=== PATIENT | female | born 1965 | race Caucasian/White ===

== ENCOUNTER 2019-09-27 10:38 | Emergency (ER) | payer OTHER, SELFPAY ==
[2019-09-27 10:54] VITALS: BP 137/69; PULSE 88; RESP 16; TEMP 37.2; O2SAT 100; BMI 31.4
--- NOTE | 2019-09-27 11:35 | DI.RAD.S_ITS ---
PROCEDURE: XR CHEST 1V INDICATIONS: cough TECHNIQUE: One view of the chest was acquired. COMPARISON: None. FINDINGS: Surgical changes and devices: Upper abdominal postoperative changes are seen. Lungs and pleura: On this semiupright portable chest examination, no large pneumothorax or large pleural effusions are seen. No focal infiltrates are seen. Mediastinum: Mediastinal contours appear normal. Heart size is normal. Bones and chest wall: Age-appropriate bony degenerative changes are seen. No suspicious bony lesions. Overlying soft tissues appear unremarkable. IMPRESSION: Portable chest within normal limits. Dictated by: Ramírez Kim M.D. on 09/27/2019 at 11:34 Approved by: Ramírez Kim M.D. on 09/27/2019 at 11:34
--- NOTE | 2019-09-27 11:48 | ED_ITS ---
HPI - Ear Problem <Rama Simms, [employer] COUNSEL-BC - Last Filed: 09/27/19 19:55> General Chief complaint: Ear Stated complaint: LEFT EAR INFECTION Time Seen by Provider: 09/27/19 11:18 Source: patient Mode of arrival: Ambulatory Limitations: no limitations History of Present Illness HPI Narrative: The patient is a 54-year-old female nonsmoker with history of Ailyn-en-Y gastric bypass, Sjogren's, rheumatoid arthritis, anemia presenting to the emergency department for left infection. She started noting left ear pain several weeks ago, then this week she started having increased pain behind and in front of her ear. She complains of severe fatigue, significant chills, dry cough, and pain. She has been using Tylenol at home. She took her daughter's and said last night even though she knows that she was not supposed to because of her Ailyn-en-Y. She denies any fevers. She does take Humira and also receives Venofer infusions. She states that she did have a cut inside of her ear several weeks ago when she ?was picking at it.The patient does believe that her dry cough is due to being from out of town. 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 She denies any nausea or vomiting, but does complain of lack of appetite. Related Data Home Medications Medication Instructions Recorded Confirmed adalimumab 40 mg/0.8 mL 40 mg SUBCUT Q10D ml 09/27/19 09/27/19 subcutaneous syringe kit clonazepam 1 mg tablet 1 mg PO BEDTIME 09/27/19 09/27/19 cyclobenzaprine 10 mg tablet 10 mg PO BEDTIME 09/27/19 09/27/19 docusate sodium 100 mg capsule 100 mg PO BID 09/27/19 09/27/19 estradiol 2 mg tablet 2 mg PO DAILY 09/27/19 09/27/19 hydroxychloroquine 200 mg tablet 400 mg PO DAILY tab 09/27/19 09/27/19 iron sucrose 100 mg iron/5 mL 100 mg IV 2XW ml 09/27/19 09/27/19 intravenous solution levothyroxine 150 mcg capsule 150 mcg PO DAILY 09/27/19 09/27/19 liothyronine 25 mcg tablet 25 mcg PO DAILY 09/27/19 09/27/19 mecobalamin (vitamin B12) 10,000 mcg IM 09/27/19 09/27/19 mcg solution for injection pantoprazole PO 09/27/19 09/27/19 phentermine 37.5 mg tablet 37.5 mg PO DAILY 09/27/19 09/27/19 rosuvastatin 5 mg tablet 5 mg PO DAILY 09/27/19 09/27/19 simethicone 125 mg capsule 125 mg PO QD-BID PRN 09/27/19 09/27/19 Previous Rx's Medication Instructions Recorded amoxicillin-pot clavulanate 1 tab PO BID #20 tab 09/27/19 [Augmentin] hydrocodone-acetaminophen [Henning] 1 tab PO Q4-6H PRN #7 tab 09/27/19 ofloxacin 10 drop EAR-LEFT DAILY 7 Days #10 09/27/19 ml ondansetron 4 mg PO Q6H PRN #14 tab 09/27/19 prednisone 40 mg PO DAILY 5 Days #10 tab 09/27/19 Allergies Allergy/AdvReac Type Severity Reaction Status Date / Time adhesive tape Allergy rash Verified 09/27/19 10:18 ceftriaxone [From Rocephin] Allergy hives Verified 09/27/19 10:18 droperidol Allergy psychotic Verified 09/27/19 10:18 episode erythromycin base Allergy hives Verified 09/27/19 10:15 gatifloxacin [From Tequin] Allergy Hives Verified 09/27/19 10:18 leflunomide [From Arava] Allergy facial Verified 09/27/19 10:18 burning methotrexate Allergy facial Verified 09/27/19 10:18 burning NSAIDS (Non-Steroidal Allergy ulcers Verified 09/27/19 10:18 Anti-Inflamma codeine AdvReac nightmares Verified 09/27/19 10:18 Review of Systems <BALAJI Sanz-BC - Last Filed: 09/27/19 19:55> Review of Systems Narrative: GENERAL: See HPI HEENT: See HPI RESPIRATORY: Denies dyspnea, cough, wheezing, hemoptysis, sputum. CARDIOVASCULAR: Denies chest pain, palpitations, orthopnea, edema, GASTROINTESTINAL: Denies nausea, vomiting, abdominal pain, diarrhea, constipation, melena. : Denies dysuria, frequency, incontinence, hematuria, urinary retention. MUSCULOSKELETAL: denies weakness, joint pain, or bony pain SKIN: Denies rash, skin lesions, or other NEUROLOGIC: Denies weakness, headache, numbness, change in speech, confusion, seizures, incoordination. PSYCHIATRIC: No concerning psychosocial issues. 12 point review of systems is negative except for those stated above Patient History <DANIA Sanz - Last Filed: 09/27/19 19:55> Medical History (Updated 09/27/19 @ 14:27 by DANIA Sanz) Anemia (Acute) Sjogrens syndrome (Acute) Surgical History (Updated 09/27/19 @ 11:52 by DANIA Sanz) History of Ailyn-en-Y gastric bypass (Acute) Exam <DANIA Sanz - Last Filed: 09/27/19 19:55> Narrative Exam Narrative: GENERAL: This is a well-nourished, well-developed patient, no acute distress HEAD: Atraumatic. Normocephalic. See ENT exam. EYES: Pupils equal round and reactive. Extraocular motions intact. No scleral icterus. No injection or drainage. ENT: Swelling noted to the left ear canal, tympanic membrane slightly bulging but pearly wood. Pain to palpation of left mastoid, pain to palpation left preauricular area, erythema noted just posterior over mastoid, erythema also noted 2-3 cm preauricular area. Pain to palpation of pinna of left ear. Right ear has canal within normal limits, TM pearly wood. NECK: Trachea midline. No JVD or lymphadenopathy. Supple, nontender, no meningeal signs. CARDIOVASCULAR: Regular rate and rhythm RESPIRATORY: Clear to auscultation. Breath sounds equal bilaterally. No wheezes, rales, or rhonchi. GASTROINTESTINAL: Abdomen soft, non-tender, nondistended. No hepato- splenomegaly, or palpable masses. No guarding. EXTREMITIES: No clubbing, cyanosis, or edema. No joint tenderness, effusion, or edema noted. BACK: Nontender without deformity or crepitance. No flank tenderness. NEURO: AOx3. SKIN: Please refer to ENT exam Initial Vital Signs Initial Vital Signs: Vital Signs Temperature 98.9 F 09/27/19 10:54 Pulse Rate 88 09/27/19 10:54 Respiratory Rate 16 09/27/19 10:54 Blood Pressure 137/69 08/15/20 10:54 Pulse Oximetry 100 09/27/19 10:54 <DO Atul Marlow Last Filed: 09/28/19 07:20> Initial Vital Signs Initial Vital Signs: Vital Signs Temperature 98.9 F 09/27/19 10:54 Pulse Rate 88 09/27/19 10:54 Respiratory Rate 16 09/27/19 10:54 Blood Pressure 137/69 09/27/19 10:54 Pulse Oximetry 100 09/27/19 10:54 Course <DANIA Sanz - Last Filed: 09/27/19 19:55> Orders Ordered: Discontinued Medications Amoxicillin/Clavulanate Potassium (Augmentin 875-125 Mg) 1 tab PO NOW ONE Stop: 09/27/19 13:39 Last Admin: 09/27/19 13:44 Dose: 1 tab Documented by: ESTRADA Vital Signs Vital signs: Vital Signs - 8 hr 09/27/19 14:47 Pulse Rate 78 Respiratory Rate 16 Blood Pressure 134/88 Pulse Oximetry 99 <DO Atul Marlow Last Filed: 09/28/19 07:20> Orders Ordered: Discontinued Medications Amoxicillin/Clavulanate Potassium (Augmentin 875-125 Mg) 1 tab PO NOW ONE Stop: 09/27/19 13:39 Last Admin: 09/27/19 13:44 Dose: 1 tab Documented by: ESTRADA Vital Signs Vital signs: Vital Signs - 8 hr 09/27/19 14:47 Pulse Rate 78 Respiratory Rate 16 Blood Pressure 134/88 Pulse Oximetry 99 Medical Decision Making <DANIA Sanz - Last Filed: 09/27/19 19:55> Lab Data Result diagrams: 09/27/19 12:08 09/27/19 12:08 Labs: Lab Results 09/27/19 09/27/19 09/27/19 Range/Units 12:08 12:08 12:08 WBC 7.9 (4.5-11.0) X10^3/uL RBC 4.22 (4.0-5.2) X10^6/uL Hgb 11.5 L (12.0-16.0) g/dL Hct 34.7 L (36-46) % MCV 82.2 (80-100) fL MCH 27.1 (26-34) PG MCHC 33.0 (30-36) % RDW 14.8 (11.6-14.8) % Plt Count 152 (150-400) X10^3/uL Neut % (Auto) 77.6 H (50-75) % Lymph % (Auto) 13.4 L (25-40) % [place] % (Auto) 7.5 (3-14) % Eos % (Auto) 1.0 L (2-4) % Baso % (Auto) 0.5 (0-2) % Neut # (Auto) 6100 (6943-0081) /uL Lymph # (Auto) 1100 (5764-6356) /uL [place] # (Auto) 600 (0-900) /uL Eos # (Auto) 100 (0-450) /uL Baso # (Auto) 0 (0-100) /uL Sodium 136 L (137-145) mmol/L Potassium 3.6 (3.4-5.1) mmol/L Chloride 104 (98-107) mmol/L Carbon Dioxide 27 (22-32) mmol/L BUN 13 (7-17) mg/dL Creatinine 0.69 (0.52-1.04) mg/dL Estimated GFR > 60.0 (>60) mL/min BUN/Creatinine Ratio 18.8 (6-22) Glucose 85 (70-100) mg/dL Lactate (0.7-2.1) mmol/L Calcium 8.2 L (8.4-10.2) mg/dL Total Bilirubin 0.6 (0.2-1.3) mg/dL AST 51 H (14-36) IU/L ALT 35 H (<35) IU/L Alkaline Phosphatase 67 (38-126) U/L Total Protein 7.0 (6.3-8.2) g/dL Albumin 3.9 (3.5-5.0) g/dL Globulin 3.1 (1.7-4.1) g/dL Albumin/Globulin Ratio 1.3 (1.0-2.8) Procalcitonin < 0.05 (<0.5) ng/mL COVID-19 PCR (Negative) 09/27/19 09/27/19 Range/Units 12:08 12:25 WBC (4.5-11.0) X10^3/uL RBC (4.0-5.2) X10^6/uL Hgb (12.0-16.0) g/dL Hct (36-46) % MCV (80-100) fL MCH (26-34) PG MCHC (30-36) % RDW (11.6-14.8) % Plt Count (150-400) X10^3/uL Neut % (Auto) (50-75) % Lymph % (Auto) (25-40) % [place] % (Auto) (3-14) % Eos % (Auto) (2-4) % Baso % (Auto) (0-2) % Neut # (Auto) (2274-7766) /uL Lymph # (Auto) (2863-3587) /uL [place] # (Auto) (0-900) /uL Eos # (Auto) (0-450) /uL Baso # (Auto) (0-100) /uL Sodium (137-145) mmol/L Potassium (3.4-5.1) mmol/L Chloride (98-107) mmol/L Carbon Dioxide (22-32) mmol/L BUN (7-17) mg/dL Creatinine (0.52-1.04) mg/dL Estimated GFR (>60) mL/min BUN/Creatinine Ratio (6-22) Glucose (70-100) mg/dL Lactate 0.9 (0.7-2.1) mmol/L Calcium (8.4-10.2) mg/dL Total Bilirubin (0.2-1.3) mg/dL AST (14-36) IU/L ALT (<35) IU/L Alkaline Phosphatase (38-126) U/L Total Protein (6.3-8.2) g/dL Albumin (3.5-5.0) g/dL Globulin (1.7-4.1) g/dL Albumin/Globulin Ratio (1.0-2.8) Procalcitonin (<0.5) ng/mL COVID-19 PCR Negative (Negative) Imaging Data mastoid ct: Radiologist's Impression: [address] [place] [id number] XRay Report Signed Patient: Annika Smith#: [id number] : 1965Acct:[id number] Age/Sex: 54 / FDate of Service: 09/27/19 Loc: ED Accession Number: [id number] Procedure: XR chest 1V Ordering Provider: Rama Simms PROCEDURE: XR CHEST 1V INDICATIONS: cough TECHNIQUE: One view of the chest was acquired. COMPARISON: None. FINDINGS: Surgical changes and devices: Upper abdominal postoperative changes are seen. Lungs and pleura: On this semiupright portable chest examination, no large pneumothorax or large pleural effusions are seen. No focal infiltrates are seen. Mediastinum: Mediastinal contours appear normal. Heart size is normal. Bones and chest wall: Age-appropriate bony degenerative changes are seen. No suspicious bony lesions. Overlying soft tissues appear unremarkable. IMPRESSION: Portable chest within normal limits. Dictated by: Ramírez Kim M.D. on 09/27/2019 at 11:34 Approved by: Ramírez Kim M.D. on 09/27/2019 at 11:34 Chest x-ray: Radiologist's Impression: [address] [place] [address] XRay Report Signed Patient: Annika Smith#: [id number] : 1965Acct:[id number] Age/Sex: 54 / FDate of Service: 09/27/19 Loc: ED Accession Number: [id number] Procedure: XR chest 1V Ordering Provider: Rama Simms PROCEDURE: XR CHEST 1V INDICATIONS: cough TECHNIQUE: One view of the chest was acquired. COMPARISON: None. FINDINGS: Surgical changes and devices: Upper abdominal postoperative changes are seen. Lungs and pleura: On this semiupright portable chest examination, no large pneumothorax or large pleural effusions are seen. No focal infiltrates are seen. Mediastinum: Mediastinal contours appear normal. Heart size is normal. Bones and chest wall: Age-appropriate bony degenerative changes are seen. No suspicious bony lesions. Overlying soft tissues appear unremarkable. IMPRESSION: Portable chest within normal limits. Dictated by: Ramírez Kim M.D. on 09/27/2019 at 11:34 Approved by: Ramírez Kim M.D. on 09/27/2019 at 11:34 [facility] Narrative Medical decision making narrative: The patient is a 54-year-old female who presents with a chief complaint of left ear pain and swelling. She does have significant erythema and pain to palpation of her mastoid, so will get a CT and basic lab work to evaluate for mastoiditis. Patient also has a dry cough, complains of fatigue, has traveled from [facility] and works in a hospital so we will test her for coronavirus at this time. Given concern for possible admission, rapid test is completed came back negative patient's overall lab work is reassuring, no leukocytosis, no elevated lactate or for tendon. Imaging is also reassuring with no evidence of mastoiditis. At this point the patient appears to have a severe otitis extera, for which I will place her on antibiotics as well as prednisone for comfort. I discussed at length the importance of following up with primary care provider in the next few days when she goes back home. Discussed at length coming back to the emergency department for any acute concerns such as inability keep down food or fluid. Patient was able to tolerate 1st dose of antibiotics in the emergency department. She feels much improved and is requesting to go home. No questions or concerns upon discharge states understanding return precautions of any acute concerns as well as follow-up care. <Nhung Flores, DO - Last Filed: 09/28/19 07:20> Lab Data Labs: Lab Results 09/27/19 09/27/19 09/27/19 Range/Units 12:08 12:08 12:08 WBC 7.9 (4.5-11.0) X10^3/uL RBC 4.22 (4.0-5.2) X10^6/uL Hgb 11.5 L (12.0-16.0) g/dL Hct 34.7 L (36-46) % MCV 82.2 (80-100) fL MCH 27.1 (26-34) PG MCHC 33.0 (30-36) % RDW 14.8 (11.6-14.8) % Plt Count 152 (150-400) X10^3/uL Neut % (Auto) 77.6 H (50-75) % Lymph % (Auto) 13.4 L (25-40) % [place] % (Auto) 7.5 (3-14) % Eos % (Auto) 1.0 L (2-4) % Baso % (Auto) 0.5 (0-2) % Neut # (Auto) 6100 (2788-0533) /uL Lymph # (Auto) 1100 (3087-4736) /uL [place] # (Auto) 600 (0-900) /uL Eos # (Auto) 100 (0-450) /uL Baso # (Auto) 0 (0-100) /uL Sodium 136 L (137-145) mmol/L Potassium 3.6 (3.4-5.1) mmol/L Chloride 104 (98-107) mmol/L Carbon Dioxide 27 (22-32) mmol/L BUN 13 (7-17) mg/dL Creatinine 0.69 (0.52-1.04) mg/dL Estimated GFR > 60.0 (>60) mL/min BUN/Creatinine Ratio 18.8 (6-22) Glucose 85 (70-100) mg/dL Lactate (0.7-2.1) mmol/L Calcium 8.2 L (8.4-10.2) mg/dL Total Bilirubin 0.6 (0.2-1.3) mg/dL AST 51 H (14-36) IU/L ALT 35 H (<35) IU/L Alkaline Phosphatase 67 (38-126) U/L Total Protein 7.0 (6.3-8.2) g/dL Albumin 3.9 (3.5-5.0) g/dL Globulin 3.1 (1.7-4.1) g/dL Albumin/Globulin Ratio 1.3 (1.0-2.8) Procalcitonin < 0.05 (<0.5) ng/mL COVID-19 PCR (Negative) 09/27/19 09/27/19 Range/Units 12:08 12:25 WBC (4.5-11.0) X10^3/uL RBC (4.0-5.2) X10^6/uL Hgb (12.0-16.0) g/dL Hct (36-46) % MCV (80-100) fL MCH (26-34) PG MCHC (30-36) % RDW (11.6-14.8) % Plt Count (150-400) X10^3/uL Neut % (Auto) (50-75) % Lymph % (Auto) (25-40) % [place] % (Auto) (3-14) % Eos % (Auto) (2-4) % Baso % (Auto) (0-2) % Neut # (Auto) (2369-1094) /uL Lymph # (Auto) (3316-0845) /uL [place] # (Auto) (0-900) /uL Eos # (Auto) (0-450) /uL Baso # (Auto) (0-100) /uL Sodium (137-145) mmol/L Potassium (3.4-5.1) mmol/L Chloride (98-107) mmol/L Carbon Dioxide (22-32) mmol/L BUN (7-17) mg/dL Creatinine (0.52-1.04) mg/dL Estimated GFR (>60) mL/min BUN/Creatinine Ratio (6-22) Glucose (70-100) mg/dL Lactate 0.9 (0.7-2.1) mmol/L Calcium (8.4-10.2) mg/dL Total Bilirubin (0.2-1.3) mg/dL AST (14-36) IU/L ALT (<35) IU/L Alkaline Phosphatase (38-126) U/L Total Protein (6.3-8.2) g/dL Albumin (3.5-5.0) g/dL Globulin (1.7-4.1) g/dL Albumin/Globulin Ratio (1.0-2.8) Procalcitonin (<0.5) ng/mL COVID-19 PCR Negative (Negative) Discharge Plan Departure Patient Disposition: Home Clinical Impression: Swelling of left external ear Otitis externa Qualifiers: Otitis externa type: unspecified type Chronicity: acute Laterality: left Qualified Code(s): H60.502 - Unspecified acute noninfective otitis externa, left ear Discharge Date/Time: 09/27/19 14:49 Instructions: How to Instill Ear Drops, DI for Otitis Externa Activity Restrictions/Additional Instructions: Thank you for trusting us with your care today. I am sorry that you feel poorly wish you a speedy recovery. As discussed, your CT does not show any sign of infection into your mastoid bones. I have placed you on antibiotics. Please take this with probiotic or yogurt to help alleviate any potential antibiotic associated diarrhea. I sent 5 prescriptions to [facility] including an oral antibiotic, ear drops antibiotic, steroid pain medicine and nausea medicine. Please follow-up with primary care provider in the next 48-72 hours. In the meantime please come back to the emergency department for any acute concerns such as inability keep down fluids, chest pain, shortness of breath etcetera Prescriptions: New amoxicillin-pot clavulanate [Augmentin] 875-125 mg tablet 1 tab PO BID Qty: 20 RF: 0 ondansetron 4 mg tablet,disintegrating 4 mg PO Q6H PRN (Reason: nausea and vomiting) Qty: 14 RF: 0 hydrocodone-acetaminophen [Henning] 5-325 mg tablet 1 tab PO Q4-6H PRN (Reason: pain) Qty: 7 RF: 0 ofloxacin 0.3 % drops 10 drop EAR-LEFT DAILY 7 Days Qty: 10 RF: 0 prednisone 20 mg tablet 40 mg PO DAILY 5 Days Qty: 10 RF: 0 No Action mecobalamin (vitamin B12) 10,000 mcg recon soln IM RF: 0 hydroxychloroquine 200 mg tablet 400 mg PO DAILY RF: 0 levothyroxine 150 mcg capsule 150 mcg PO DAILY RF: 0 liothyronine [Cytomel] 25 mcg tablet 25 mcg PO DAILY RF: 0 simethicone 125 mg capsule 125 mg PO QD-BID PRNRF: 0 docusate sodium [Colace] 100 mg capsule 100 mg PO BID RF: 0 clonazepam 1 mg tablet 1 mg PO BEDTIME RF: 0 cyclobenzaprine 10 mg tablet 10 mg PO BEDTIME RF: 0 estradiol [Estrace] 2 mg tablet 2 mg PO DAILY RF: 0 pantoprazole PO RF: 0 rosuvastatin 5 mg tablet 5 mg PO DAILY RF: 0 Venofer 100 mg iron/5 mL solution 100 mg IV 2XW RF: 0 phentermine 37.5 mg tablet 37.5 mg PO DAILY RF: 0 Humira 40 mg/0.8 mL syringe kit 40 mg SUBCUT Q10D RF: 0 Stand Alone Forms: Work Release Note <Nhung Flores, - Last Filed: 09/28/19 07:20> Cosign ED Attending [place] Attestation: I was immediately available in the department for consultation. Documentation has been reviewed. I agree with assessment and plan.
[2019-09-27 12:17] LABS: Add Manual Diff / Slide Review NO; Basophils Absolute Auto 0 /uL (0-100); Basophils Percent Auto 0.5 % (0-2); Eosinophils Absolute Auto 100 /uL (0-450); Hematocrit 34.7 % (36-46); Hemoglobin 11.5 g/dL (12.0-16.0); Lymphocytes Absolute Auto 1100 /uL (1100-4500); Lymphocytes Percent Auto 13.4 % (25-40); Mean Corpuscular Hemoglobin 27.1 PG (26-34); Mean Corpuscular Volume 82.2 fL (80-100); Monocytes Absolute Auto 600 /uL (0-900); Monocytes Percent Auto 7.5 % (3-14); Neutrophils Absolute Auto 6100 /uL (1500-7000); Neutrophils Percent Auto 77.6 % (50-75); Platelet Count 152 X10^3/uL (150-400); Red Blood Cell Count 4.22 X10^6/uL (4.0-5.2); Red Cell Distribution Width 14.8 % (11.6-14.8); White Blood Cell Count 7.9 X10^3/uL (4.5-11.0)
--- NOTE | 2019-09-27 12:30 | DI.CT.S_ITS ---
PROCEDURE: CT MASTOID TEMPORAL INDICATIONS: mastoid erythema, pain COMPARISON: None. TECHNIQUE: Noncontrast 0.6 mm thick direct axial and coronal sections acquired through each temporal bone separately. FINDINGS: Image quality: This examination is limited by involuntary motion artifact. There is artifact associated with the metallic hardware. RIGHT: External auditory canal: Canal has a normal appearance. Middle ear: The middle ear structures, including the ossicles and tympanic membrane, appear normal. No abnormal fluid or soft tissue density. Inner ear: Inner ear is normally formed and appears unremarkable. Facial nerve appears normal throughout is course. Mastoids: Mastoid air cells are clear. LEFT: External auditory canal: Canal has a normal appearance. Middle ear: The middle ear structures, including the ossicles and tympanic membrane, appear normal. No abnormal fluid or soft tissue density. Inner ear: Inner ear is normally formed and appears unremarkable. Facial nerve appears normal throughout its course. Mastoids: Mastoid air cells are clear. MISCELLANEOUS: Visualized surrounding bones appear unremarkable. Visualized intracranial structures, including the cerebellopontine angle cisterns, appear normal. IMPRESSION: Unremarkable study. Specifically, no findings of left mastoid fluid or left otitis media are detected. Dictated by: Ramírez Kim M.D. on 09/27/2019 at 12:10 Approved by: Ramírez Kim M.D. on 09/27/2019 at 12:16
[2019-09-27 12:32] LABS: Alanine Aminotransferase 35 IU/L (<35); Albumin 3.9 g/dL (3.5-5.0); Albumin Globulin Ratio 1.3 (1.0-2.8); Alkaline Phosphatase 67 U/L (38-126); Aspartate Aminotransferase 51 IU/L (14-36); BUN Creatinine Ratio 18.8 (6-22); Bilirubin Total 0.6 mg/dL (0.2-1.3); Blood Urea Nitrogen 13 mg/dL (7-17); Calcium 8.2 mg/dL (8.4-10.2); Carbon Dioxide 27 mmol/L (22-32); Chloride 104 mmol/L (98-107); Estimated Glomerular Filt Rate > 60.0 mL/min (>60); Globulin 3.1 g/dL (1.7-4.1); Glucose 85 mg/dL (70-100); HEMOLYSIS < 15 (0-50); Potassium 3.6 mmol/L (3.4-5.1); Sodium 136 mmol/L (137-145)
--- NOTE | 2019-09-27 12:43 | PC.NURSE ---
mastoid neck ct
[2019-09-27 12:49] LABS: Procalcitonin < 0.05 ng/mL (<0.5)
[2019-09-27 12:55] LABS: Lactate (Lactic Acid) 0.9 mmol/L (0.7-2.1)
[2019-09-27 13:30] LABS: COVID19 -Nasal RAPID Negative (Negative)
--- NOTE | 2019-09-27 13:41 | PC.NURSE ---
practioner at bedside reviewing results and dc poc
[2019-09-27] MEDS: AMOXICILLIN/CLAV 875/125 MG 1 TAB PO (13:44)
--- NOTE | 2019-09-27 13:45 | PC.NURSE ---
pt medicated as per mdo
[2019-09-27 14:47] VITALS: BP 134/88; PULSE 78; RESP 16; O2SAT 99
== END 2019-09-27 14:49 | disposition home or self-care (01) ==
PROVIDERS: Emergency Provider Nurse Practitioner Family
DX: H60.502 Unspecified acute noninfective otitis externa, left ear (principal); H61.892 Other specified disorders of left external ear; R05 Cough
CPT/HCPCS: 36415; 70480; 71045; 80053; 83605; 84145; 85025; 87635; 99284